=== PATIENT | female | born 1960 | race Caucasian/White ===

== ENCOUNTER 2021-04-26 09:41 | Emergency (ER) | payer OTHER ==
[~2021-04-26 09:41] MED LIST: ACULAR LS20 DROP/ML OD
[2021-04-26 11:45] LABS: BASOPHIL 0.6 % (0-2); EOSINOPHIL 0.2 % (0-5); HGB 14.1 g/dl (12.5-16.0); LYMPHOCYTE 21.5 % (15-48); MCH 30.3 pg (25.0-31.0); MCHC 32.8 g/dL (32.0-36.0); MCV 92.3 fL (78.0-100.0); MONOCYTE 13.6 % (0-12); MPV 10.7 fL (6.0-9.5); NEUTROPHIL 63.7 % (41-80); NRBC 0; PLT 166 K/uL (150-400); RBC 4.66 M/uL (4.20-5.40); RDW 13.6 % (11.5-14.0); WBC 4.9 K/uL (4.0-10.5)
[2021-04-26 12:10] LABS: ALBUMIN 3.5 g/dL (3.4-5.0); BILIRUBIN - TOTAL 0.5 mg/dL (0.2-1.0); BUN/CREAT RATIO (CALC) 15.4 RATIO; CREATININE 0.91 mg/dL (0.51-0.95); GLOBULIN (CALCULATION) 3.6 g/dL; POTASSIUM 3.6 mmol/L (3.5-5.1); TOTAL PROTEIN 7.1 g/dL (6.4-8.2)
== END 2021-04-26 15:20 | disposition home or self-care (01) ==
LOC: FER 09:41
PROVIDERS: Internal Medicine
DX: U07.1 COVID-19 (principal); Z23 Encounter for immunization; Z90.89 Acquired absence of other organs
CPT/HCPCS: 36415; 80053; 85025; M0243; Q0244